=== PATIENT | female | born 1970 | race Caucasian/White ===

== ENCOUNTER 2024-09-13 01:06 | Day surgery (SDC) | payer BC, SELFPAY ==
[2024-08-30 15:13] VITALS: BMI 25.8
[2024-09-13 09:57] VITALS: BP 110/76; PULSE 81; RESP 16; TEMP 36.2; O2SAT 99
[2024-09-13 10:03] LABS: BEDSIDEPREGUCG Negative (Negative)
[2024-09-13] MEDS: LACTATED RINGERS 1,000 ML 150 ML IV CONT (10:07)
--- NOTE | 2024-09-13 10:53 | P.PNAN_ITS ---
Anes - Initial Pre Proc Eval Procedure: Operation Date: 09/13/24 11:00 Proposed Procedures p Screening Colonoscopy - Todd Cary MD Date/Time: 09/13/24 10:53 Surgeon: Todd Cary MD Pre Op Diagnosis: screening malignant neaoplasm colon Patient Data Age: 54 Gender: F Height: 1.65 m Weight: 69.9 kg Last Vital Signs Temp 97.1 F L 09/13/24 09:57 Pulse 81 09/13/24 09:57 Resp 16 09/13/24 09:57 BP 110/76 09/13/24 09:57 Pulse Ox 99 09/13/24 09:57 O2 Del Method Room Air 09/13/24 09:57 Allergies Allergy/AdvReac Type Severity Reaction Status Date / Time cinnamon Allergy Severe THROAT Verified 09/13/24 09:52 SWELLING Sulfa (Sulfonamide Allergy Severe THROAT Verified 09/13/24 09:52 Antibiotics) SWELLING cat dander Allergy Intermediate EYE ITCH Verified 09/13/24 09:52 Home Medications ?Medication ?Instructions ?Recorded ?Confirmed ?Type calcium, magnesium, zinc 1 cap PO DAILY 08/30/24 09/13/24 History cholecalciferol (vitamin D3) 25 25 mcg PO DAILY 08/30/24 09/13/24 History mcg (1,000 unit) capsule (Vitamin D3) estradiol-norethindrone acet 0.5 1 tablet PO DAILY 08/30/24 09/13/24 History mg-0.1 mg tablet folic acid 1 mg tablet 1 mg PO DAILY 08/30/24 09/13/24 History guselkumab 100 mg/mL subcutaneous 100 mg subcut .8W 08/30/24 09/13/24 History auto-injector (Tremfya) methotrexate sodium (PF) 25 mg/mL 20 mg subcut WEEKLY 08/30/24 09/13/24 History injection solution Laboratory Tests 09/13/24 09:57 POC Urine HCG, Qual Negative (Negative) Patient hx anesthesia problems: none Family hx anesthesia problems: none Results Review: All pre-operative results and documents have been reviewed as part of the pre- operative evaluation. PMFSH Social History Social History Smoking status: Never smoker Alcohol intake: current Substance use: never Substance use type: does not use Living arrangements: with family Spiritual care concerns: No Anes - Eval Final PreProcedure Day of Procedure 09/13/24 10:53 Patient weight: normal Heart: regular rate and rhythm Lungs: clear to auscultation Airway: Mallampati scale class II Neurological: alert and oriented Last oral intake: >/= 8 hours ASA classification: II Emergent: no Anesthetic plan: proceed Anesthesia type and monitoring: general GIVS and standard monitoring Results Review: All pre-operative results and documents have been reviewed as part of the pre-operative evaluation. Informed Consent: The patient's anesthetic plan and its attendant risks and benefits were discussed with the patient/family/POA. Questions were solicited and answers provided to the satisfaction of the patient/family/POA.
--- NOTE | 2024-09-13 11:18 | PM.HPGS ---
History of Present Illness History of Present Illness Consent: Risks, benefits, and alternatives have been discussed and questions answered. Patient agrees to proceed with procedure. Chief complaint: screening malignant neaoplasm colon Narrative: Dea Briones is a 54 year old female here for screening colonoscopy, last one more than 10 years ago Review of Systems Review of Systems: All systems reviewed & are unremarkable except as noted in HPI and below PMFSH Past Medical History Medical History (Updated 09/13/24 @ 11:19 by Todd Cary MD) Colon cancer screening Social History Social History Smoking status: Never smoker Alcohol intake: current Substance use: never Substance use type: does not use Living arrangements: with family Spiritual care concerns: No Meds Home Medications and Allergies Home Medications ?Medication ?Instructions ?Recorded ?Confirmed ?Type calcium, magnesium, zinc 1 cap PO DAILY 08/30/24 09/13/24 History cholecalciferol (vitamin D3) 25 25 mcg PO DAILY 08/30/24 09/13/24 History mcg (1,000 unit) capsule (Vitamin D3) estradiol-norethindrone acet 0.5 1 tablet PO DAILY 08/30/24 09/13/24 History mg-0.1 mg tablet folic acid 1 mg tablet 1 mg PO DAILY 08/30/24 09/13/24 History guselkumab 100 mg/mL subcutaneous 100 mg subcut .8W 08/30/24 09/13/24 History auto-injector (Tremfya) methotrexate sodium (PF) 25 mg/mL 20 mg subcut WEEKLY 08/30/24 09/13/24 History injection solution Allergies Allergy/AdvReac Type Severity Reaction Status Date / Time cinnamon Allergy Severe THROAT Verified 09/13/24 09:52 SWELLING Sulfa (Sulfonamide Allergy Severe THROAT Verified 09/13/24 09:52 Antibiotics) SWELLING cat dander Allergy Intermediate EYE ITCH Verified 09/13/24 09:52 Vital Signs Vital Signs - 24 hr 09/13/24 09:57 Temperature 97.1 F L Pulse Rate 81 Respiratory Rate 16 Blood Pressure 110/76 Pulse Oximetry 99 Oxygen Delivery Room Air Exam Const: General: comfortable and no acute distress HENMT: Face/Nose/Sinus: Normal nares present Eyes: General: appearance normal, both eyes and all related structures Neck: Neck: no JVD Resp: Auscultation: clear to auscultation bilaterally Cardio: Rate: regular rate Rhythm: regular rhythm GI: Inspection: non-distended GI Palp: Yes Soft to palpation Skin: General skin exam: normal color Neuro: General: gait normal Speech: normal speech Extrem: General: normal to inspection Psych: Mental Status: mental status grossly normal Assessment and Plan Assessment and plan (1) Colon cancer screening: Code(s): Z12.11 - Encounter for screening for malignant neoplasm of colon Status: Acute Assessment and Plan: colonoscopy
[2024-09-13 11:39] VITALS: BP 104/61; PULSE 68; RESP 17; O2SAT 100
[2024-09-13 11:49] VITALS: BP 120/78; PULSE 64; RESP 18; O2SAT 100
[2024-09-13 11:59] VITALS: BP 107/65; PULSE 59; RESP 15; O2SAT 100
== END 2024-09-13 12:05 | disposition home or self-care (01) ==
PROVIDERS: Anesthesiology; Visit Provider Internal Medicine Gastroenterology
PROC: 0DJD8ZZ Inspection of Lower Intestinal Tract, Via Natural or Artificial Opening Endoscopic (ICD-10-PCS; CPT 45378; principal; 2024-09-13 11:00)
DX: Z12.11 Encounter for screening for malignant neoplasm of colon (principal); K64.8 Other hemorrhoids
CPT/HCPCS: 45378; J2003; J2704; J7120